=== PATIENT | female | born 1930 | race Hispanic/Latino ===

== ENCOUNTER → 2018-12-19 | Outpatient (CLI) | payer MEDICARE, OTHER ==
[~2018-12-19] MED LIST: ALENDRONATE SOD70 MG PO; ATORVASTATIN CA20 MG PO; CIPRO500 MG PO; DIOVAN160 MG PO; FEOSOL325 MG PO; FERROUS SULFAT325 MG PO; FUROSEMIDE40 MG PO; GLIPIZIDE-METF1 EAC2 PO; GLIPIZIDE5 MG PO; HYDROCHLOROTHIA25 MG PO; HYDROCHLOROTHIA50 MG PO; ISOSORBIDE MONO20 MG PO; LASIX40 MG PO; LEVOTHYROXINE50 MCG PO; METFORMIN HCL500 MG PO; METRONIDAZOLE500 MG PO; NAPROXEN250 MG PO; PANTOPRAZOLE SO20 MG PO; PANTOPRAZOLE SO40 MG PO; QUETIAPINE FUMA25 MG PO; QUETIAPINE FUMA50 MG PO; SEROQUEL50 MG PO; TYLENOL # 31 EA; TYLENOL # 31 EA PO; VERAPAMIL HCL120 MG PO; ZOFRAN ODT4 MG PO
== END ==
LOC: RAD 07:56
PROVIDERS: ATTEND Family Medicine Adult Medicine
DX: I70.90 Unspecified atherosclerosis (principal); I87.2 Venous insufficiency (chronic) (peripheral)
CPT/HCPCS: 93922; 93925; 93970

== ENCOUNTER 2018-12-29 11:56 | Emergency (ER) | payer MEDICARE, OTHER ==
[~2018-12-29] VITALS: Ht 162.6 cm; Wt 83.9 kg
--- NOTE | 2018-12-29 13:26 | NUR ---
PATIENT TO ROOM 10
[2018-12-29 13:29] LABS: BASOPHILS % 0.6 % (0.0-1.0); EOSINOPHILS # (AUTO) 0.3 (0.0-0.4); EOSINOPHILS % 4.2 % (0.0-6.0); HEMATOCRIT 36.8 % (34.2-44.1); HEMOGLOBIN 11.9 g/dL (12.0-16.0); LYMPHOCYTES # (AUTO) 1.7 (1.0-3.2); LYMPHOCYTES % 23.4 % (18.0-39.1); MEAN CORPUSCULAR HEMOGLOBIN 30.1 pg (28-32); MEAN CORPUSCULAR HGB CONC 32.3 g/dL (31-35); MEAN CORPUSCULAR VOLUME 92.9 fL (81-99); MONOCYTES # (AUTO) 0.5 (0.2-0.8); MONOCYTES % 7.4 % (4.4-11.3); NEUTROPHILS # (AUTO) 4.6 (2.1-6.9); PLATELET COUNT 261 x10e3/uL (140-360); RED BLOOD COUNT 3.96 x10e6/uL (3.6-5.1); RED CELL DISTRIBUTION WIDTH 13.3 % (11.7-14.4)
[2018-12-29 13:32] LABS: BILIRUBIN,URINE NEGATIVE (NEGATIVE); CLARITY,URINE HAZY (CLEAR); COLOR,URINE YELLOW (YELLOW); KETONES,URINE NEGATIVE (NEGATIVE); LEUKOCYTE ESTERASE ,URINE 1+ (NEGATIVE); NITRITE,URINE NEGATIVE (NEGATIVE); PROTEIN,URINE DIPSTICK NEGATIVE (NEGATIVE); URINE UROBILINOGEN 0.2 mg/dL (0.2 - 1)
[2018-12-29 13:43] LABS: ALBUMIN 3.3 g/dL (3.5-5.0); ALBUMIN/GLOBULIN RATIO 0.8 (0.8-2.0); ANION GAP 14.1 mmol/L (8-16); CALCIUM 9.1 mg/dL (8.4-10.2); CREATININE, SERUM 1.28 mg/dL (0.57-1.11); POTASSIUM 4.1 mmol/L (3.5-5.1)
[2018-12-29 13:47] LABS: BACTERIA,URINE FEW /HPF; EPITHELIAL CELLS,URINE MANY /LPF; RBC,URINE 0-5 /HPF (0-5)
[2018-12-29 13:49] LABS: CREATINE KINASE MB 1.6 ng/mL (0-5.0)
--- NOTE | 2018-12-29 14:15 | Diagnostic Imaging Report ---
EXAMINATION: CHEST SINGLE (PORTABLE) COMPARISON: Chest x-ray 02/17/2017 INDICATION: ^CHEST PAIN ^[id number] ^1340 ^Y DISCUSSION: Frontal view of the chest obtained at 1338 hours. HEART AND MEDIASTINUM: Stable cardiomegaly and aortic ectasia LINES: None. LUNGS: Diffuse hyperinflation consistent with COPD. Central vascular markings are prominent. There is diffuse bronchial wall thickening. PLEURA: No pleural effusion or pneumothorax. BONES AND SOFT TISSUES: Stable degenerative changes of the spine. The soft tissues are normal. IMPRESSION: Cardiomegaly and central vascular prominence. Diffuse bronchial wall thickening may represent acute or chronic bronchitis. COPD. Signed by: Dr. Luna Alvarado MD on 12/29/2018 2:12 PM
[2018-12-29] MEDS ORDERED: INSULIN LISPRO 100 UNIT/1 ML 3ML VIAL SQ ONE ×2 (14:30→15:45)
[2018-12-29] MEDS ORDERED: SODIUM CHLORIDE 0.9% 1000ML 1,000 ML IV SCH (14:30)
--- NOTE | 2018-12-29 15:45 | NUR ---
DR. POLANCO AT BEDSIDE RE-EVALUATING PATIENT AND RE-WRAPPING HER COMPRESSION BANDAGES. PATIENT GIVEN SANDWICH AND JELLO FOR SNACK
--- NOTE | 2018-12-29 16:09 | NUR ---
IV REMOVED, INFILTRATED.
== END 2018-12-29 18:32 | disposition home or self-care (01) ==
LOC: ER 11:56
DX: E11.65 Type 2 diabetes mellitus with hyperglycemia (principal); I10 Essential (primary) hypertension; E03.9 Hypothyroidism, unspecified
CPT/HCPCS: 36415; 71045; 80053; 81001; 82550; 82553; 82948; 84484; 85025; 99284; J7030

== ENCOUNTER 2021-09-04 16:51 | Emergency (ER) | payer MEDICARE, OTHER ==
[~2021-09-04] VITALS: Ht 154.9 cm; Wt 83.9 kg
[~2021-09-04 16:51] MED LIST changes: +ALLOPURINOL100 MG PO; +AMLODIPINE BESY10 MG PO; +CEFUROXIME500 MG PO; +CLINDAMYCIN HC150 MG PEG; +CLINDAMYCIN HC150 MG PO; +CLONIDINE HCL0.1 MG PO; +COLACE100 MG PO; +COUMADIN5 MG PO; +DOCUSATE SODIU100 MG PO; +FLOMAX0.4 MG PO; +FUROSEMIDE20 MG PO; +GLIMEPIRIDE2 MG PO; +GLIPIZIDE ER2.5 MG PO; +ISOSORBIDE MONO30 MG PO; +LASIX20 MG PO; +PLAVIX75 MG PO; +SEROQUEL25 MG PO; +TAMSULOSIN HCL0.4 MG PO; +ULTRACET TABLE1 EACH PO; +WARFARIN SODIUM5 MG PO
== END 2021-09-04 18:28 | disposition home or self-care (01) ==
LOC: ER 17:00
DX: J06.9 Acute upper respiratory infection, unspecified (principal)
CPT/HCPCS: 99282

== ENCOUNTER 2022-07-05 12:20 | Inpatient (IN) | payer MEDICARE, OTHER ==
[~2022-07-05] VITALS: Ht 154.9 cm; Wt 83.9 kg
[2022-07-05] MEDS ORDERED: INSULIN REGULAR, HUMAN 100 UNIT/1 ML IV ONE ×3 (13:00→15:45)
[2022-07-05] MEDS ORDERED: LACTATED RINGER'S 1,000 ML INJ ONE (13:00)
[2022-07-05 13:17] LABS: ABG HCO3 25 mmol/L (22-26); ABG PCO2 40 mmHg (35-45); ABG PH 7.41 (7.35-7.45); ABG PO2 85 mmHg (80-105); ABG TCO2 26
[2022-07-05 13:18] LABS: BASOPHILS # (AUTO) 0.1 (0.0-0.1); BASOPHILS % 0.2 % (0.0-1.0); EOSINOPHILS % 0.1 % (0.0-6.0); HEMATOCRIT 41.5 % (34.2-44.1); HEMOGLOBIN 13.8 g/dL (12.0-16.0); LYMPHOCYTES # (AUTO) 1.6 (1.0-3.2); LYMPHOCYTES % 7.6 % (18.0-39.1); MEAN CORPUSCULAR HEMOGLOBIN 32.2 pg (28-32); MEAN CORPUSCULAR HGB CONC 33.3 g/dL (31-35); MONOCYTES # (AUTO) 1.1 (0.2-0.8); MONOCYTES % 5.2 % (4.4-11.3); NEUTROPHILS # (AUTO) 17.2 (2.1-6.9); NEUTROPHILS % 85.2 % (38.7-80.0); PLATELET COUNT 309 x10e3/uL (140-360); RED BLOOD COUNT 4.28 x10e6/uL (3.6-5.1); RED CELL DISTRIBUTION WIDTH 12.8 % (11.7-14.4)
[2022-07-05 13:39] LABS: ALBUMIN 3.3 g/dL (3.5-5.0); ALBUMIN/GLOBULIN RATIO 0.8 (0.8-2.0); ANION GAP 19.3 mmol/L (8-16); CALCIUM 9.4 mg/dL (8.4-10.2); CREATININE, SERUM 1.83 mg/dL (0.57-1.11); POTASSIUM 5.3 mmol/L (3.5-5.1)
[2022-07-05 13:57] LABS: CLARITY,URINE CLEAR (CLEAR); COLOR,URINE YELLOW (YELLOW); KETONES,URINE NEGATIVE (NEGATIVE); LEUKOCYTE ESTERASE ,URINE NEGATIVE (NEGATIVE); NITRITE,URINE NEGATIVE (NEGATIVE); PROTEIN,URINE DIPSTICK 1+ (NEGATIVE); URINE UROBILINOGEN 0.2 mg/dL (0.2 - 1)
[2022-07-05 14:14] LABS: RBC,URINE 0-5 /HPF (0-5)
[2022-07-05] MEDS ORDERED: DEXTROSE 50% SYRINGE 50 ML IV PRN (14:15)
[2022-07-05] MEDS: SODIUM CHLORIDE 0.9% 1000ML 1,000 ML IV SCH (15:00)
[2022-07-05] MEDS: INSULIN REGULAR, HUMAN 100 UNIT/1 ML SQ SCH ×2 (16:30→20:55)
[2022-07-05] MEDS ORDERED: INSULIN LISPRO 100 UNIT/1 ML 3ML VIAL SQ ONE (17:45)
[2022-07-05] MEDS: INSULIN GLARGINE 100 UNITS/ML VIAL SQ SCH (17:46)
[2022-07-05] MEDS ORDERED: INSULIN LISPRO 100 UNIT/1 ML 3ML VIAL SQ SCH (21:00)
[2022-07-05 21:30] VITALS: BP 134/64
[2022-07-05 23:47] VITALS: BP 153/82
[2022-07-06] VITALS (9 sets, daily range): BP systolic 102–162; BP diastolic 51–82
[2022-07-06] MEDS: SODIUM CHLORIDE 0.9% 1000ML 1,000 ML IV SCH ×4 (00:05→21:07)
[2022-07-06] MEDS ORDERED: ACETAMINOPHEN 325 MG TAB PO PRN (04:00)
[2022-07-06 06:21] LABS: ANION GAP 16.5 mmol/L (8-16); CALCIUM 9.4 mg/dL (8.4-10.2); CREATININE, SERUM 1.12 mg/dL (0.57-1.11); POTASSIUM 4.5 mmol/L (3.5-5.1)
[2022-07-06 07:00] LABS: BASOPHILS # (AUTO) 0.1 (0.0-0.1); BASOPHILS % 0.5 % (0.0-1.0); EOSINOPHILS # (AUTO) 0.2 (0.0-0.4); EOSINOPHILS % 0.8 % (0.0-6.0); HEMATOCRIT 40.6 % (34.2-44.1); HEMOGLOBIN 13.8 g/dL (12.0-16.0); LYMPHOCYTES # (AUTO) 2.1 (1.0-3.2); LYMPHOCYTES % 11.8 % (18.0-39.1); MEAN CORPUSCULAR VOLUME 94.2 fL (81-99); MONOCYTES # (AUTO) 1.5 (0.2-0.8); MONOCYTES % 8.2 % (4.4-11.3); NEUTROPHILS # (AUTO) 13.8 (2.1-6.9); NEUTROPHILS % 76.4 % (38.7-80.0); PLATELET COUNT 241 x10e3/uL (140-360); RED BLOOD COUNT 4.31 x10e6/uL (3.6-5.1); RED CELL DISTRIBUTION WIDTH 13.1 % (11.7-14.4)
[2022-07-06] MEDS: INSULIN REGULAR, HUMAN 100 UNIT/1 ML SQ SCH ×4 (08:57→21:17)
[2022-07-06] MEDS: INSULIN LISPRO 100 UNIT/1 ML 3ML VIAL SQ SCH ×3 (08:57→16:05)
[2022-07-06] MEDS ORDERED: AMLODIPINE BESYLATE 10 MG TAB PO SCH (09:45)
[2022-07-06] MEDS ORDERED: ALLOPURINOL 100 MG TAB PO SCH (09:45)
[2022-07-06 09:59] LABS: CHOL/HDL RATIO 2.7 (3.0-3.6)
[2022-07-06 10:18] LABS: INR 1.86; PROTHROMBIN TIME 22.9 seconds (11.9-14.5)
[2022-07-06] MEDS: DOCUSATE SODIUM 100 MG CAP PO SCH (11:28)
[2022-07-06] MEDS: ALLOPURINOL 100 MG TAB PO SCH (11:28)
[2022-07-06] MEDS: FERROUS SULFATE 325 MG TAB PO SCH (11:28)
[2022-07-06] MEDS: AMLODIPINE BESYLATE 10 MG TAB PO SCH (11:29)
[2022-07-06] MEDS: CLOPIDOGREL BISULFATE 75 MG TAB PO SCH (11:29)
[2022-07-06] MEDS: ISOSORBIDE MONONITRATE 30 MG TAB CR PO SCH (11:29)
[2022-07-06] MEDS: WARFARIN SOD 5 MG TAB PO SCH (16:59)
[2022-07-06] MEDS ORDERED: ATORVASTATIN 20 MG TAB PO SCH (21:00)
[2022-07-06] MEDS: INSULIN GLARGINE 100 UNITS/ML VIAL SQ SCH (21:17)
[2022-07-07] VITALS (8 sets, daily range): BP systolic 140–195; BP diastolic 49–81
[2022-07-07] MEDS: SODIUM CHLORIDE 0.9% 1000ML 1,000 ML IV SCH ×2 (04:33→14:22)
[2022-07-07] MEDS ORDERED: INSULIN GLARGINE 100 UNITS/ML VIAL SQ ONE (08:00)
[2022-07-07 08:13] LABS: BASOPHILS # (AUTO) 0.1 (0.0-0.1); BASOPHILS % 0.3 % (0.0-1.0); EOSINOPHILS # (AUTO) 0.2 (0.0-0.4); EOSINOPHILS % 0.9 % (0.0-6.0); HEMATOCRIT 36.6 % (34.2-44.1); HEMOGLOBIN 12.1 g/dL (12.0-16.0); LYMPHOCYTES # (AUTO) 1.6 (1.0-3.2); LYMPHOCYTES % 8.8 % (18.0-39.1); MEAN CORPUSCULAR HEMOGLOBIN 32.4 pg (28-32); MEAN CORPUSCULAR HGB CONC 33.1 g/dL (31-35); MEAN CORPUSCULAR VOLUME 97.9 fL (81-99); MONOCYTES % 5.6 % (4.4-11.3); NEUTROPHILS # (AUTO) 15.3 (2.1-6.9); NEUTROPHILS % 82.8 % (38.7-80.0); PLATELET COUNT 256 x10e3/uL (140-360); RED BLOOD COUNT 3.74 x10e6/uL (3.6-5.1); RED CELL DISTRIBUTION WIDTH 12.9 % (11.7-14.4)
[2022-07-07 08:33] LABS: MAGNESIUM 1.7 MG/DL (1.3-2.1); PHOSPHORUS 2.1 MG/DL (2.3-4.7)
[2022-07-07] MEDS: PANTOPRAZOLE SOD 40 MG TABEC PO SCH (08:55)
[2022-07-07] MEDS: ALLOPURINOL 100 MG TAB PO SCH (08:55)
[2022-07-07] MEDS: AMLODIPINE BESYLATE 10 MG TAB PO SCH (08:55)
[2022-07-07] MEDS: FERROUS SULFATE 325 MG TAB PO SCH (08:55)
[2022-07-07] MEDS: DOCUSATE SODIUM 100 MG CAP PO SCH (08:55)
[2022-07-07] MEDS: ISOSORBIDE MONONITRATE 30 MG TAB CR PO SCH (08:55)
[2022-07-07] MEDS: CLOPIDOGREL BISULFATE 75 MG TAB PO SCH (08:57)
[2022-07-07 09:43] LABS: CALCIUM 8.2 mg/dL (8.4-10.2); CREATININE, SERUM 0.83 mg/dL (0.57-1.11)
[2022-07-07 09:51] LABS: PLATELET ESTIMATE ADEQUATE; PLATELET MORPHOLOGY COMMENT MODERATE LARGE; RBC MORPHOLOGY COMMENT NORMAL
[2022-07-07] MEDS: INSULIN REGULAR, HUMAN 100 UNIT/1 ML SQ SCH ×4 (09:59→21:29)
[2022-07-07] MEDS: INSULIN LISPRO 100 UNIT/1 ML 3ML VIAL SQ SCH ×3 (10:00→16:30)
[2022-07-07] MEDS ORDERED: SODIUM CHLORIDE 0.45% IV SCH (16:00)
[2022-07-07] MEDS ORDERED: SODIUM BICARBONATE 8.4% IV SCH (16:00)
[2022-07-07] MEDS: SODIUM BICARBONATE 8.4% SYRING 50 ML in SODIUM CHLORIDE 0.45% 1,000 ML IV SCH (16:53)
[2022-07-07] MEDS: WARFARIN SOD 5 MG TAB PO SCH (18:20)
[2022-07-07] MEDS ORDERED: ATORVASTATIN 40 MG TAB PO SCH (21:00)
[2022-07-07] MEDS ORDERED: INSULIN GLARGINE 100 UNITS/ML VIAL SQ SCH (21:00)
[2022-07-07] MEDS: METOPROLOL TARTRATE 25 MG TAB PO SCH (22:30)
[2022-07-07] MEDS: NIFEDIPINE CR 30 MG TAB PO SCH (22:30)
[2022-07-08] VITALS: BP 176/61
[2022-07-08] MEDS: SODIUM BICARBONATE 8.4% SYRING 50 ML in SODIUM CHLORIDE 0.45% 1,000 ML IV SCH (02:53)
[2022-07-08 04:00] VITALS: BP 158/57
[2022-07-08 08:19] LABS: ANION GAP 13.5 mmol/L (8-16); CREATININE, SERUM 0.85 mg/dL (0.57-1.11); POTASSIUM 3.5 mmol/L (3.5-5.1)
[2022-07-08 08:26] VITALS: BP 152/51
[2022-07-08 08:29] LABS: BASOPHILS # (AUTO) 0.1 (0.0-0.1); BASOPHILS % 0.8 % (0.0-1.0); EOSINOPHILS # (AUTO) 0.3 (0.0-0.4); EOSINOPHILS % 1.5 % (0.0-6.0); HEMATOCRIT 37.6 % (34.2-44.1); HEMOGLOBIN 11.8 g/dL (12.0-16.0); LYMPHOCYTES # (AUTO) 1.8 (1.0-3.2); MEAN CORPUSCULAR HEMOGLOBIN 32.4 pg (28-32); MEAN CORPUSCULAR HGB CONC 31.4 g/dL (31-35); MEAN CORPUSCULAR VOLUME 103.3 fL (81-99); MONOCYTES # (AUTO) 1.1 (0.2-0.8); NEUTROPHILS # (AUTO) 14.6 (2.1-6.9); NEUTROPHILS % 80.4 % (38.7-80.0); PLATELET COUNT 255 x10e3/uL (140-360); RED BLOOD COUNT 3.64 x10e6/uL (3.6-5.1); RED CELL DISTRIBUTION WIDTH 13.2 % (11.7-14.4)
[2022-07-08] MEDS: INSULIN REGULAR, HUMAN 100 UNIT/1 ML SQ SCH (08:32)
[2022-07-08] MEDS: INSULIN LISPRO 100 UNIT/1 ML 3ML VIAL SQ SCH (08:32)
[2022-07-08 09:00] VITALS: BP 152/51
[2022-07-08] MEDS: FERROUS SULFATE 325 MG TAB PO SCH (09:05)
[2022-07-08] MEDS: DOCUSATE SODIUM 100 MG CAP PO SCH (09:06)
[2022-07-08] MEDS: METOPROLOL TARTRATE 25 MG TAB PO SCH (09:06)
[2022-07-08] MEDS: PANTOPRAZOLE SOD 40 MG TABEC PO SCH (09:06)
[2022-07-08] MEDS: NIFEDIPINE CR 30 MG TAB PO SCH (09:06)
[2022-07-08] MEDS: ALLOPURINOL 100 MG TAB PO SCH (09:07)
[2022-07-08] MEDS: ISOSORBIDE MONONITRATE 30 MG TAB CR PO SCH (09:07)
[2022-07-08] MEDS ORDERED: Atorvastatin PO (09:22)
[2022-07-08] MEDS ORDERED: LOPRESSOR25 MG PO (09:22)
[2022-07-08] MEDS ORDERED: NIFEDIPINE ER30 M1 PO (09:22)
[2022-07-08 11:00] VITALS: BP 146/59
== END 2022-07-08 11:41 | disposition home or self-care (01) | DRG 638 ==
LOC: ER 12:30 → ERHOLD 14:16 → MED/SURG3 21:20
PROVIDERS: ADMIT Internal Medicine; ATTEND Internal Medicine
DX: E09.65 Drug or chemical induced diabetes mellitus with hyperglycemia (principal); E87.2 Acidosis; T38.0X5A Adverse effect of glucocorticoids and synthetic analogues, initial encounter; Z79.4 Long term (current) use of insulin; N17.9 Acute kidney failure, unspecified; E86.0 Dehydration; I10 Essential (primary) hypertension; E78.5 Hyperlipidemia, unspecified; K21.9 Gastro-esophageal reflux disease without esophagitis; Z90.49 Acquired absence of other specified parts of digestive tract; Z86.718 Personal history of other venous thrombosis and embolism; Z79.01 Long term (current) use of anticoagulants; M10.9 Gout, unspecified; Z20.822 Contact with and (suspected) exposure to COVID-19
CPT/HCPCS: 36415; 36600; 71045; 80048; 80053; 80061; 81001; 82805; 82948; 83036; 83735; 84100; 84484; 85025; 85610; 93005; 94799; 99251; 99284; J1815; J1817; J7030; J7121